=== PATIENT | female | born 1940 | race Caucasian/White ===

== ENCOUNTER 2016-08-04 18:54 | Emergency (ER) | payer MEDICARE, OTHER ==
--- NOTE | ~2016-08-04 | ER ---
PATIENT'S NAME: LIZZY BUSCH [facility] AGE: 76 Y [address] ROOM: [place] [address] LOCATION: ED ADMIT DATE: 08/04/2016 ER/Outpatient Report DISCHARGE DATE: 08/04/2016 FAMILY PHYSICIAN: Syed Bradley MD ATTENDING PHYSICIAN: Soha Sanchez HISTORY OF PRESENT ILLNESS: A 76-year-old female presents today with chief complaint of paroxysmal palpitations that have since resolved. The episode today lasted from 1730 hours to 1815 hours, so approximately 45 minutes, and it has since resolved since she is waiting in the waiting room. She had an episode yesterday, which lasted about 30 minutes and it resolved on its own. She was not doing anything with exertion or anything, and she had no like chest pain or shortness of breath or faint feeling, just palpitations that felt somewhat uncomfortable. She went to see her doctor this morning, and he offered her to do some Holter monitoring, which she did not want to have that done at that time. She has no complaints. She is completely asymptomatic now. No nausea or vomiting. No weakness. No diaphoresis. No shortness of breath. No chest pain. No history of heart problems in the past. PAST MEDICAL HISTORY: Includes hypertension. SURGICAL HISTORY: Appendectomy. SOCIAL HISTORY: She does not smoke or use any drugs. She drinks wine occasionally. MEDICATIONS: Please see med list. ALLERGIES: CODEINE. REVIEW OF SYSTEMS: Reviewed by me and negative with the exception of those discussed in the HPI. PHYSICAL EXAMINATION: VITAL SIGNS: She is 5 feet 6 inches, she weighs 55 kilos, blood pressure 152/77, heart rate 75, respiratory rate 16, temperature is 97.8, sats are 96% on room air. GCS is 15. GENERAL: The patient is in no acute distress. She is very pleasant. She is speaking in full sentences. NEURO: She is alert and oriented x4. GCS is 15. PATIENT'S NAME: LIZZY BUSCH [facility] AGE: 76 Y [address] ROOM: [place] [address] LOCATION: ED ADMIT DATE: 08/04/2016 ER/Outpatient Report DISCHARGE DATE: 08/04/2016 FAMILY PHYSICIAN: Syed Bradley MD ATTENDING PHYSICIAN: Soha Sanchez EYES: Her pupils are equal and reactive to light. She does not have any proptosis. NECK: She does have a mass in her neck, that I can feel. No goiter. HEART: Rate is regular rate and rhythm at this time. Her heart rate is about 75 beats per minute. She has no chest wall tenderness. LUNGS: Her lungs sounds sound clear. She has no labored breathing, tachypnea, or accessory muscle use. She has strong radial pulses. ABDOMEN: Soft, nontender, nondistended. No guarding, rebound. EXTREMITIES: She moves all extremities without any difficulty. She has no pedal edema. EMERGENCY ROOM COURSE: An EKG was done, which on my read looks like just sinus rhythm without any ectopy. She has sort of biphasic versus flattened T-waves in lead III only and early R-wave progression, but no ST elevation. There is no ST depression. Her intervals are within normal limits. Her PRN interval is 187, QTc is 401, not prolonged. Heart rate is 70 and she has no ectopy. I discussed this with the patient. We will put a 48-hour Holter monitor on her and ask her to follow with her doctor. She understands reasons back to the ER sooner. IMPRESSION: Paroxysmal palpitations, resolved. SOHA SANCHEZ MD CAW/modl /[id number] d: 08/05/16308 t: 08/06/161953, OUTPATIENT REPORT
== END 2016-08-04 19:49 | disposition disaster alternative care site (69) ==
LOC: GMED 18:54
DX: R00.2 Palpitations (principal); I10 Essential (primary) hypertension; Z90.49 Acquired absence of other specified parts of digestive tract; Z88.5 Allergy status to narcotic agent; Z79.899 Other long term (current) drug therapy